=== PATIENT | female | born 1990 | race Two or more races ===

== ENCOUNTER 2018-03-08 17:39 | Emergency (ER) | payer SELFPAY ==
[2018-03-08 18:41] VITALS: BMI 30.8
[2018-03-08 18:44] VITALS: BP 123/82; PULSE 82; RESP 18; TEMP 98.1; O2SAT 96
== END 2018-03-08 20:12 | disposition left against medical advice (07) ==
LOC: ED 17:39
DX: Z02.89 Encounter for other administrative examinations (principal); M79.671 Pain in right foot